=== PATIENT | female | born 1990 | race American Indian/Alaskan Native ===

== ENCOUNTER 2016-06-24 18:47 | Emergency (ER) | payer OTHER ==
[2016-06-24 20:52] LABS: Alanine Aminotransferase 12 units/L (7-56); Albumin 4.5 g/dL (3.9-5); Albumin/Globulin Ratio 1.5 %; Alkaline Phosphatase 55 units/L (35-129); Anion Gap 19 mmol/L; Bilirubin,Total 0.3 mg/dL (0.1-1.2); Blood Urea Nitrogen 8 mg/dL (7-17); Calcium 9.4 mg/dL (8.4-10.2); Carbon Dioxide 23 mmol/L (22-30); Chloride 97.1 mmol/L (98-107); Glucose 82 mg/dL (65-100); Lipase 28 units/L (13-60); Potassium 4.3 mmol/L (3.6-5.0); Sodium 135 mmol/L (137-145); Total Protein 7.6 g/dL (6.3-8.2)
[2016-06-24 21:03] LABS: Basophils % (Auto) 0.1 % (0.0-1.8); Eosinophils % (Auto) 0.5 % (0.0-4.3); Hemoglobin 13.3 gm/dl (10.1-14.3); Mean Corpuscular HGB Conc 32 % (30-34); Mean Corpuscular Hemoglobin 26 pg (28-32); Mean Corpuscular Volume 81 fl (79-97); Platelet Count 211 K/mm3 (140-440); Red Blood Count 5.07 M/mm3 (3.65-5.03); Red Cell Distribution Width 13.2 % (13.2-15.2); White Blood Count 6.6 K/mm3 (4.5-11.0)
[2016-06-25 01:12] LABS: Bacteria,Urine 1+ /HPF (Negative); Bilirubin,Urine NEG (Negative); Blood,Urine LG (Negative); Ketones,Urine 80 mg/dL (Negative); Leukocyte Esterase,Urine MOD (Negative); Mucus,Urine 2+ /HPF; Nitrite,Urine NEG (Negative); Protein,Urine <15 mg/dL mg/dL (Negative); Urobilinogen,Urine < 2.0 mg/dL (<2.0)
[2016-06-25] MEDS ORDERED: TYLENOL PO ONE (07:14)
--- NOTE | 2016-06-25 07:21 | Emergency Department Report ---
ED Abdominal Pain HPI - General Chief Complaint: Abdominal Pain Stated Complaint: POSS 6 WKS GESTATION/STOMACH PAIN/HURTS TO BREATH Time Seen by Provider: 06/25/16 07:02 Source: patient Mode of arrival: Ambulatory Limitations: No Limitations - History of Present Illness Initial Comments: 26-year-old female with no significant past medical history presents to the hospital complains of right-sided chest pain and abdominal pain. Patient lifted a table at work. The next morning she had right sided sharp chest pain radiating to the back and lower abdominal pain. Right-sided chest pain is intermittent, rated 7/10 in intensity, worse with laying in certain positions and movement. No shortness of breath, calf tenderness, or edema. Patient also had intermittent lower abdominal cramping pain with brown spotting. She denies dysuria or fever. Patient has not had any care including ultrasound. This is her first . - Related Data Previous Rx's Medication Instructions Recorded Last Taken Type Nitrofurantoin [place]/M-Cryst 100 mg PO Q12HR #14 capsule 06/25/16 Unknown Rx [Macrobid CAP] Vit W-Ca,Fe,FA(<1 mg) 1 each PO DAILY #30 tablet 06/25/16 Unknown Rx [ Vitamins] Allergies Allergy/AdvReac Type Severity Reaction Status Date / Time No Known Allergies Allergy Unverified 06/24/16 19:22 ED Review of Systems ROS: Stated complaint: POSS 6 WKS GESTATION/STOMACH PAIN/HURTS TO BREATH Other details as noted in HPI Comment: All other systems reviewed and negative Other: Constitutional: No fevers chills Eyes: No eye pain visual changes ENT: No ear pain or throat pain Neck: Denies pain Respiratory: Denies cough wheezing shortness of breath Cardiovascular: Denies palpitations, syncope GI: Denies nausea, vomiting, diarrhea : Denies dysuria Musculoskeletal: Denies back pain Skin: Denies rash, lesions, erythema Neurologic: Denies headache, numbness, weakness Psychiatric: Denies suicidal ideation, hallucinations ED Past Medical Hx - Past Medical History Previous Medical History?: No - Surgical History Past Surgical History?: No - Social History Smoking Status: Never Smoker Substance Use Type: None - Medications Home Medications: Home Medications Medication Instructions Recorded Confirmed Last Taken Type Nitrofurantoin [place]/M-Cryst 100 mg PO Q12HR #14 capsule 03/12/17 Unknown Rx [Macrobid CAP] Vit W-Ca,Fe,FA(<1 mg) 1 each PO DAILY #30 tablet 06/25/16 Unknown Rx [ Vitamins] ED Physical Exam - General Limitations: No Limitations - Other Other exam information: General: No limitations, patient is alert in no acute distress Head exam: Atraumatic, normocephalic Eyes exam: Normal appearance ENT: Moist mucous membrane, normal oropharynx Neck exam: Normal inspection, full range of motion Respiratory exam: Clear to auscultation bilateral, no wheezes, rales, crackles, right chest pain reproducible with movement Cardiovascular: Normal rate and rhythm, normal heart sounds : Mild amount of old blood in vaginal vault, no CMT or adnexal tenderness. Cervical os closed Abdomen: Soft, nondistended, mild lower abd pain, with normal bowel sounds, no rebound, or guarding Extremity: Full range of motion normal inspection no deformity, no calf tenderness or edema Back: Normal Inspection, full range of motion, no tenderness Neurologic: Alert, oriented x3, cranial nerves intact, no motor or sensory deficit Psychiatric: normal affect, normal mood Skin: Warm, dry, intact ED Course Vital Signs 06/24/16 19:16 Temperature 98.3 F Pulse Rate 75 Respiratory 18 Rate O2 Sat by Pulse 100 Oximetry - Reevaluation(s) Reevaluation #1: 06/25/16 07:21 tylenol ordered for pain ED Medical Decision Making - Lab Data Result diagrams: 06/24/16 20:15 06/24/16 20:15 Lab Results 06/24/16 06/24/16 06/24/16 Range/Units 00:00 20:15 20:15 WBC 6.6 (4.5-11.0) K/mm3 RBC 5.07 H (3.65-5.03) M/mm3 Hgb 13.3 (10.1-14.3) gm/dl Hct 41.0 (30.3-42.9) % MCV 81 (79-97) fl MCH 26 L (28-32) pg MCHC 32 (30-34) % RDW 13.2 (13.2-15.2) % Plt Count 211 (140-440) K/mm3 Lymph % (Auto) 20.4 (13.4-35.0) % [place] % (Auto) 7.6 H (0.0-7.3) % Eos % (Auto) 0.5 (0.0-4.3) % Baso % (Auto) 0.1 (0.0-1.8) % Lymph # 1.3 (1.2-5.4) K/mm3 [place] # 0.5 (0.0-0.8) K/mm3 Eos # 0.0 (0.0-0.4) K/mm3 Baso # 0.0 (0.0-0.1) K/mm3 Seg Neutrophils % 71.4 H (40.0-70.0) % Seg Neutrophils # 4.7 (1.8-7.7) K/mm3 Sodium 135 L (137-145) mmol/L Potassium 4.3 (3.6-5.0) mmol/L Chloride 97.1 L (98-107) mmol/L Carbon Dioxide 23 (22-30) mmol/L Anion Gap 19 mmol/L BUN 8 (7-17) mg/dL Creatinine 0.5 L (0.7-1.2) mg/dL Estimated GFR > 60 ml/min BUN/Creatinine Ratio 16.00 % Glucose 82 (65-100) mg/dL Calcium 9.4 (8.4-10.2) mg/dL Total Bilirubin 0.3 (0.1-1.2) mg/dL AST 18 (5-40) units/L ALT 12 (7-56) units/L Alkaline Phosphatase 55 (35-129) units/L Total Protein 7.6 (6.3-8.2) g/dL Albumin 4.5 (3.9-5) g/dL Albumin/Globulin Ratio 1.5 % Lipase 28 (13-60) units/L HCG, Quant (0-4) mIU/mL Urine Color Yellow (Yellow) Urine Turbidity Clear (Clear) Urine pH 5.0 (5.0-7.0) Ur Specific [place] 1.025 (1.003-1.030) Urine Protein <15 mg/dl (Negative) mg/dL Urine Glucose (UA) Neg (Negative) mg/dL Urine Ketones 80 (Negative) mg/dL Urine Blood Lg (Negative) Urine Nitrite Neg (Negative) Ur Reducing Substances Not Reportable Urine Bilirubin Neg (Negative) Urine Ictotest Not Reportable Urine Urobilinogen < 2.0 (<2.0) mg/dL Ur Leukocyte Esterase Mod (Negative) Urine WBC (Auto) 26.0 H (0.0-6.0) /HPF Urine RBC (Auto) 1.0 (0.0-6.0) /HPF U Epithel Cells (Auto) 5.0 (0-13.0) /HPF Urine Bacteria (Auto) 1+ (Negative) /HPF Urine Mucus 2+ /HPF Urine HCG, Qual Positive A (Negative) Blood Type Ord Rhogam Gestat Weeks WEEKS 06/24/16 06/25/16 Range/Units 20:15 07:50 WBC (4.5-11.0) K/mm3 RBC (3.65-5.03) M/mm3 Hgb (10.1-14.3) gm/dl Hct (30.3-42.9) % MCV (79-97) fl MCH (28-32) pg MCHC (30-34) % RDW (13.2-15.2) % Plt Count (140-440) K/mm3 Lymph % (Auto) (13.4-35.0) % [place] % (Auto) (0.0-7.3) % Eos % (Auto) (0.0-4.3) % Baso % (Auto) (0.0-1.8) % Lymph # (1.2-5.4) K/mm3 [place] # (0.0-0.8) K/mm3 Eos # (0.0-0.4) K/mm3 Baso # (0.0-0.1) K/mm3 Seg Neutrophils % (40.0-70.0) % Seg Neutrophils # (1.8-7.7) K/mm3 Sodium (137-145) mmol/L Potassium (3.6-5.0) mmol/L Chloride (98-107) mmol/L Carbon Dioxide (22-30) mmol/L Anion Gap mmol/L BUN (7-17) mg/dL Creatinine (0.7-1.2) mg/dL Estimated GFR ml/min BUN/Creatinine Ratio % Glucose (65-100) mg/dL Calcium (8.4-10.2) mg/dL Total Bilirubin (0.1-1.2) mg/dL AST (5-40) units/L ALT (7-56) units/L Alkaline Phosphatase (35-129) units/L Total Protein (6.3-8.2) g/dL Albumin (3.9-5) g/dL Albumin/Globulin Ratio % Lipase (13-60) units/L HCG, Quant 26510 H (0-4) mIU/mL Urine Color (Yellow) Urine Turbidity (Clear) Urine pH (5.0-7.0) Ur Specific [place] (1.003-1.030) Urine Protein (Negative) mg/dL Urine Glucose (UA) (Negative) mg/dL Urine Ketones (Negative) mg/dL Urine Blood (Negative) Urine Nitrite (Negative) Ur Reducing Substances Urine Bilirubin (Negative) Urine Ictotest Urine Urobilinogen (<2.0) mg/dL Ur Leukocyte Esterase (Negative) Urine WBC (Auto) (0.0-6.0) /HPF Urine RBC (Auto) (0.0-6.0) /HPF U Epithel Cells (Auto) (0-13.0) /HPF Urine Bacteria (Auto) (Negative) /HPF Urine Mucus /HPF Urine HCG, Qual (Negative) Blood Type AB POSITIVE Ord Rhogam Gestat Weeks Rh pos WEEKS Wet Prep negative - Radiology Data Radiology results: report reviewed transvag/Ultrasound pelvic: Single living intrauterine gestation at 6 weeks 0 days. Indeterminate moderately peripherally vascular mass left adnexal. Differential includes concomitant ectopic or copious luteum cyst of - Medical Decision Making Patient has a single living IUP. Complex mass in the left adnexal likely corpus lutein cyst patient will still be provided topical precautions until repeat ultrasound, verify. Patient does not require RhoGAM given blood type. vitamins, Tylenol, and Macrobid will be provided. Patient is mild urine wbc inc therefore will cover for UTI. Patient's right sided chest pain started after lifting and is reproducible with movement. Appears to be musculoskeletal in origin. Patient has normal vital signs and no significant shortness of breath of DVT symptoms. - Differential Diagnosis threatened , miscarriage, ectopic, musculoskeletal pain Critical Care Time: No Critical care attestation.: If time is entered above; I have spent that time in minutes in the direct care of this critically ill patient, excluding procedure time. ED Disposition Clinical Impression: 6 weeks gestation of , Ovarian mass, left, Threatened , UTI ( urinary tract infection), Strain of chest wall Disposition: DISCHARGED TO HOME OR SELFCARE Is pt being admited?: No Does the pt Need Aspirin: No Condition: Stable Instructions: Ectopic (ED), Threatened Miscarriage (ED), Ovarian Cyst (ED), Urinary Tract Infection in Women (ED), Thoracic Pain (ED) Additional Instructions: Take the medication as prescribed. Take Tylenol as needed for pain. Follow-up with [facility] doctor provided with a doctor provided. Ultrasound shows a 6 week and a mass on the left ovary. This is likely a corpus luteum cyst which is a normal cyst that develops during to support the baby. However, the radiologist states cannot rule out any ectopic ( in your ovary) as well. Although this is less likely, you still need to be aware of the possibility. You will need repeat ultrasound and reevaluation. Return if worsening pain. Pelvic rest (no sex) recommended because they may stimulate further bleeding. Await clearance form [employer] doctor before reinitiating sexual activity. Your gonorrhea and chlamydia tests are pending and take approximately 3-4 days result. You may obtain results in medical records with a photo ID. You may also obtain results through the follow -up doctor office via medical record request. Prescriptions: Nitrofurantoin [place]/M-Cryst [Macrobid CAP] 100 mg PO Q12HR #14 capsule Vit W-Ca,Fe,FA(<1 mg) [ Vitamins] 1 each PO DAILY #30 tablet Referrals: [facility] [Provider Group] - 3-5 Days Time of Disposition: 09:14
--- NOTE | 2016-06-25 09:01 | Ultrasound Report ---
FINAL REPORT PROCEDURE: US OB \T\lt; = 14 WEEKS FETUS TECHNIQUE: Real-time transabdominal sonography of the uterus, placenta, amniotic fluid, adnexa, and fetus was performed with image documentation. Measurements were obtained to determine age/size. M-mode Doppler was used to document heartbeat. CPT 63829 HISTORY: vag spotting and pain COMPARISON: No prior studies are available for comparison. FINDINGS: CRL: 4 mm, which corresponds to a gestational age of: 6 weeks, 0 days. Yolk Sac: Normal. Embryonic Cardiac Activity: 102 beats per minute Gestational Sac: Normal. Amniotic fluid: Normal. Cervix: Normal. Right Ovary: 4.2 x 1.8 centimeters with normal flow Left Ovary: 3.7 x 2.0 centimeters with normal flow. Heterogeneous complex mass in the left adnexa measuring 1.6 x 1.2 centimeters with peripheral vascular flow of indeterminate etiology. This could reflect concomitant ectopic or other etiologies including but not limited to involuted corpus luteum cyst of . Concomitant ectopic is the diagnosis of exclusion and followup and further workup is advised Estimated delivery date: 02/18/2017 Free fluid: None IMPRESSION: Single live intrauterine gestation at approximately 6 weeks 0 days. EDC by US 02/18/2017. Indeterminate moderately peripherally vascular mass left adnexa as described. Short-term followup and further evaluation/monitoring is advised
--- NOTE | 2016-06-25 09:04 | Ultrasound Report ---
FINAL REPORT PROCEDURE: US OB TRANSVAGINAL TECHNIQUE: Real-time transvaginal sonography of the uterus, placenta, amniotic fluid, adnexa, and fetus was performed with image documentation. Measurements were obtained to determine age/size. M-mode Doppler was used to document heartbeat. CPT 12274 HISTORY: vag spotting and pain COMPARISON: No prior studies are available for comparison. FINDINGS: CRL: 4mm, which corresponds to a gestational age of: 6weeks, 0 days. Consistent with 1 percent growth per [place] Yolk Sac: Normal. Embryonic Cardiac Activity: 102 beats per minute Gestational Sac: Normal. Right Ovary: 4.2 x 1.8 centimeters with normal flow Left Ovary: 3.7 x 2.0 centimeters with normal flow. Indeterminate heterogeneous mass in the left adnexa measuring 1.6 x 1.2 centimeters with moderate peripheral vascular flow and partial incomplete anterior ring of fire appearance image 21. Concomitant ectopic is the diagnosis of exclusion and followup and further workup is advised. Estimated delivery date: 02/18/2017 Comment: No free fluid is seen IMPRESSION: 1. Single living intrauterine gestation at approximately 6 weeks 0 days 2. EDC by US 02/18/2017. 3. Indeterminate complex mass left adnexa as described. Followup is advised
[2016-06-25] MEDS ORDERED: MACROBID PO ONE (09:05)
[2016-06-25 09:45] VITALS: BP 124/82
== END 2016-06-25 09:46 | disposition home or self-care (01) ==
LOC: ED 18:47
DX: O20.0 Threatened abortion (principal); O23.41 Unspecified infection of urinary tract in pregnancy, first trimester; S29.011A Strain of muscle and tendon of front wall of thorax, initial encounter; N83.9 Noninflammatory disorder of ovary, fallopian tube and broad ligament, unspecified; Z3A.01 Less than 8 weeks gestation of pregnancy; X58.XXXA Exposure to other specified factors, initial encounter; Y93.89 Activity, other specified; Y99.9 Unspecified external cause status; Y92.89 Other specified places as the place of occurrence of the external cause
CPT/HCPCS: 36415; 76801; 76817; 80053; 81001; 81025; 83690; 84702; 85025; 86900; 86901; 87210; 87591

== ENCOUNTER 2016-09-13 16:01 | Emergency (ER) | payer MEDICAID, OTHER ==
--- NOTE | 2016-09-13 18:43 | Ultrasound Report ---
FINAL REPORT PROCEDURE: US OB \T\gt; = 14 WEEKS FETUS TECHNIQUE: Real-time limited sonographic examination was performed for evaluation of size, position, heartbeat, fluid volume for each fetus with image documentation (1 or more fetuses). CPT 10714 HISTORY: report amniotic fluid leakage with 18 weeks pregna COMPARISON: Prior Ob ultrasound 06/25/2016 FINDINGS: There is a single living intrauterine gestation currently visualized in the breech presentation with a heart rate of 176 beats per minute. The placenta is located posterior and is grade 0. No placenta abruption is visualized. Cervix length 3 centimeters. No amniotic fluid is visualized at the present time. There appears to be severe oligohydramnios. Detailed exam of the anatomy was not performed today. No gross abnormality is seen. MEASUREMENTS BPD: 3.9 centimeter equals 17 week 5 days. HC: Not measured. AC: 12.3 centimeter equals 17 weeks 6 days. FL: 2.4 centimeter equals 17 week 2 days. Mean Gestational Age (composite criteria): 17 weeks 4 days. Ratio biometry: Normal . Estimated Weight: Not calculated. Interval growth: Appropriate . Estimated Due Date (earliest scan): 02/18/2017. IMPRESSION: A single living intrauterine gestation currently visualized in the breech presentation. Severe oligohydramnios is present. No amniotic fluid is visualized. Cervix length as described. Average sonographic age by today's exam 17 weeks 4 days. The expected age by the initial exam 17 weeks 3 days. There has been appropriate interval growth. Estimated date confinement remains 02/18/2017 0.5 weeks. Follow-up exam recommended. OBGYN consultation recommended.
--- NOTE | 2016-09-13 20:06 | Emergency Department Report ---
HPI - General Chief Complaint: Vaginal Bleeding Time Seen by Provider: 09/13/16 20:03 - HPI HPI: This is a 26-year-old Afro-Lux[place]bour[place] female who presents to the emergency department at and about 18 weeks with the complaint of "my water broke yesterday." The patient says that she went to [facility] and was told that she had a low amniotic fluid level and that her options were termination. The patient did not respond well to these being her only options and she was told to follow-up with her [facility]S [facility]ER. She does not have a particular WOODS RIDER. She says that she has seen a hide and skin colerer one time and was due for a repeat visit today, however she cannot remember the WO[facility]S [facility]ER service or the name of the hide and skin colerer. She continued to have some leaking of fluid so she presents to [facility] for further evaluation. She denies any significant abdominal pain, any vaginal bleeding, dysuria or discharge. ED Past Medical Hx - Past Medical History Previous Medical History?: Yes - Surgical History Past Surgical History?: No - Social History Smoking Status: Never Smoker Substance Use Type: Non Opiate Pain, Prescribed - Medications Home Medications: Home Medications Medication Instructions Recorded Confirmed Last Taken Type Nitrofurantoin [place]/M-Cryst 100 mg PO Q12HR #14 capsule 06/25/16 Unknown Rx [Macrobid CAP] Vit W-Ca,Fe,FA(<1 mg) 1 each PO DAILY #30 tablet 06/25/16 Unknown Rx [ Vitamins] ED Review of Systems ROS: Stated complaint: 18 WEEKS WATER BROKE Other details as noted in HPI Comment: All other systems reviewed and negative Constitutional: denies: chills, fever Eyes: denies: eye pain, eye discharge, vision change ENT: denies: ear pain, throat pain Respiratory: denies: cough, shortness of breath, wheezing Gastrointestinal: denies: nausea, vomiting Genitourinary: denies: urgency, dysuria, discharge Musculoskeletal: denies: back pain, joint swelling, arthralgia Skin: denies: rash, lesions Neurological: denies: headache, weakness, paresthesias Physical Exam - Physical Exam Vital Signs: Vital Signs 09/13/16 16:44 Temperature 97.5 F L Pulse Rate 89 Respiratory 20 Rate Blood Pressure 111/55 O2 Sat by Pulse 100 Oximetry Physical Exam: GENERAL: The patient is well-developed well-nourished. HEENT: Normocephalic. Atraumatic. Extraocular motions are intact. Patient has moist mucous membranes. Pupils equal reactive to light bilaterally. NECK: Supple. Trachea is midline. CHEST/LUNGS: Clear to auscultation. There is no respiratory distress noted. HEART/CARDIOVASCULAR: Regular. There is no tachycardia. There is no gallop rub or murmur. ABDOMEN: Abdomen is soft, nontender. Patient has normal bowel sounds. There is no abdominal distention. Gravid uterus is palpable a few centimeters below the umbilicus. SKIN: There is no rash. There is no edema. There is no diaphoresis. NEURO: The patient is awake, alert, and oriented. The patient is cooperative. The patient has no focal neurologic deficits. The patient has normal speech. MUSCULOSKELETAL: There is no tenderness or deformity. There is no limitation range of motion. There is no evidence of acute injury. ED Course Vital Signs 09/13/16 16:44 Temperature 97.5 F L Pulse Rate 89 Respiratory 20 Rate Blood Pressure 111/55 O2 Sat by Pulse 100 Oximetry - Consultations Consultation #1: I spoke with the WOODS RIDER service, [facility]. I first spoke with Dr. Renae but I had to hang up abruptly to take care of a nonresponsive patient coming into the emergency department. I was called back by the hide and skin colerer, Nicole, about 5 minutes later. I spoke with Mckenna regarding the patient's oligohydramnios. She then spoke with Dr. Renae and I was told that the patient can be discharged home safely to follow up with her WO[facility]ER service. They feel that there is always the chance that there is a miscarriage but the patient should be safe for discharge home. 09/13/16 20:35 ED Medical Decision Making - Medical Decision Making This is a 26-year-old female presents to the emergency department at about 17 weeks and a history of leaking amniotic fluid who was seen at [facility] yesterday and discharged home to follow-up with OB. She came in today with continuation of her symptoms and it almost seems like she came for a second opinion as she was not happy with the reaction at [facility] that she says involved different methods of termination of her . The patient does not have any abdominal pain or any vaginal bleeding. She had an ultrasound that was ordered through triage that came back showing oligohydramnios but a live currently viable intrauterine at about 17 weeks. I spoke with the WO[facility]S R[employer]ER service brick mason and they are aware of the patient's ultrasound result showing the oligohydramnios and the intrauterine . They do not recommend admission and instead recommended that the patient follow up with her WOODS RIDER service tomorrow. I spoke with the patient regarding the WOODS RIDER recommendations and she will be discharged home to follow-up with her WOODS RIDER service tomorrow. However she has been given instructions for bed rest, pelvic rest, avoiding any exertion, and she is to call the WOODS RIDER service for similar the morning. She is to return to the ER immediately with any development of abdominal discomfort, vaginal bleeding or any acute distress. She understands and agrees to plan. - Differential Diagnosis oligohydramnios, , miscarriage Critical Care Time: No Critical care attestation.: If time is entered above; I have spent that time in minutes in the direct care of this critically ill patient, excluding procedure time. ED Disposition Clinical Impression: Oligohydramnios Qualifiers: Fetus number: single or unspecified fetus Trimester: second trimester Qualified Code(s): O41.02X0 - Oligohydramnios, second trimester, not applicable or unspecified Qualifiers: Weeks of gestation: 17 weeks Qualified Code(s): Z3A.17 - 17 weeks gestation of Disposition: DISCHARGED TO HOME OR SELFCARE Is pt being admited?: No Condition: Stable Additional Instructions: You were seen today for a complication of her in which there is no amniotic fluid and the name of this condition is oligohydramnios. Please follow -up with your WOODS RIDER service tomorrow without fail. Return to the emergency department immediately with any sharp abdominal or pelvic pains, vaginal bleeding, signs of labor/contractions, development of fever or any acute process. Referrals: [facility] [Primary Care Provider] - 24 Hours [facility] [Provider Group] - 24 Hours Forms: Work/School Release Form(ED) Time of Disposition: 21:45
[2016-09-13 21:55] VITALS: BP 101/58
== END 2016-09-13 21:56 | disposition home or self-care (01) ==
LOC: ED 16:01
DX: O41.02X0 Oligohydramnios, second trimester, not applicable or unspecified (principal); Z3A.17 17 weeks gestation of pregnancy
CPT/HCPCS: 76805; 99283

== ENCOUNTER 2016-09-17 07:14 | Inpatient (IN) | payer MEDICAID ==
[2016-09-17 08:25] LABS: Bilirubin,Urine NEG (Negative); Blood,Urine LG (Negative); Ketones,Urine NEG (Negative); Leukocyte Esterase,Urine LG (Negative); Mucus,Urine 1+ /HPF; Nitrite,Urine NEG (Negative); RBC,Urine > 182.0 /HPF (0.0-6.0); Urobilinogen,Urine < 2.0 mg/dL (<2.0)
[2016-09-17 08:31] LABS: Eosinophils % (Auto) 0.2 % (0.0-4.3); Hematocrit 36.6 % (30.3-42.9); Hemoglobin 12.5 gm/dl (10.1-14.3); Mean Corpuscular HGB Conc 34 % (30-34); Mean Corpuscular Hemoglobin 28 pg (28-32); Mean Corpuscular Volume 82 fl (79-97); Platelet Count 253 K/mm3 (140-440); Red Blood Count 4.48 M/mm3 (3.65-5.03); Red Cell Distribution Width 13.3 % (13.2-15.2); White Blood Count 13.9 K/mm3 (4.5-11.0)
--- NOTE | 2016-09-17 08:48 | Emergency Department Report ---
ED Female HPI - General Chief complaint: Abdominal Pain Stated complaint: 19 WKS W/CRAMPING Time Seen by Provider: 09/17/16 08:35 Source: patient Mode of arrival: Wheelchair Limitations: No Limitations - History of Present Illness Initial comments: 26-year-old female approximately 19 weeks presents to the hospital complaining of contractions and vaginal bleeding. Patient was recently seen here and at [facility] for complaint of "my water broke". Patient was seen here on September [address] Roberts and ultrasound revealed oligohyramnios that live viable intrauterine at about 17 weeks. Outpatient follow-up was recommended. Patient went to [facility] and was evaluated on September 15 and was told that she did not have any amniotic fluid. She was told the baby still had a heartbeat. Patient was seen by high worker/GYN and started on vitamins and fish oil it was so there was a small possibility that she may still have a viable . So patient opted to see how her will progress as opposed to scheduling a D&C. Patient has been having vaginal spotting since September 15 which and crease to bleeding with clots last night. Patient has used 4 pads since bleeding increased. She complains of suprapubic contractions approximately 10 minutes apart. - Related Data Previous Rx's Medication Instructions Recorded Last Taken Type Nitrofurantoin [place]/M-Cryst 100 mg PO Q12HR #14 capsule 06/25/16 Unknown Rx [Macrobid CAP] Vit W-Ca,Fe,FA(<1 mg) 1 each PO DAILY #30 tablet 06/25/16 Unknown Rx [ Vitamins] Allergies Allergy/AdvReac Type Severity Reaction Status Date / Time No Known Allergies Allergy Unverified 06/24/16 19:22 ED Review of Systems ROS: Stated complaint: 19 WKS W/CRAMPING Other details as noted in HPI Comment: All other systems reviewed and negative Other: Constitutional: No fevers chills Eyes: No eye pain visual changes ENT: No ear pain or throat pain Neck: Denies pain Respiratory: Denies cough wheezing shortness of breath Cardiovascular: Denies chest pain, palpitations, syncope GI: As per HPI : Denies dysuria Musculoskeletal: Denies back pain, joint swelling Skin: Denies rash, lesions, erythema Neurologic: Denies headache, numbness, weakness Psychiatric: Denies suicidal ideation, hallucinations ED Past Medical Hx - Past Medical History Previous Medical History?: No - Surgical History Past Surgical History?: No - Social History Smoking Status: Never Smoker Substance Use Type: None - Medications Home Medications: Home Medications Medication Instructions Recorded Confirmed Last Taken Type Nitrofurantoin [place]/M-Cryst 100 mg PO Q12HR #14 capsule 06/25/16 Unknown Rx [Macrobid CAP] Vit W-Ca,Fe,FA(<1 mg) 1 each PO DAILY #30 tablet 06/25/16 Unknown Rx [ Vitamins] ED Physical Exam - General Limitations: No Limitations - Other Other exam information: General: No limitations, patient is alert in no acute distress Head exam: Atraumatic, normocephalic Eyes exam: Normal appearance ENT: Moist mucous membrane, normal oropharynx Neck exam: Normal inspection, full range of motion Respiratory exam: Clear to auscultation bilateral, no wheezes, rales, crackles Cardiovascular: Normal rate and rhythm, normal heart sounds Abdomen: Soft, nondistended, and nontender, with normal bowel sounds, no rebound, or guarding : head in vaginal canal, + moderate vag bleeding Extremity: Full range of motion normal inspection no deformity Back: Normal Inspection, full range of motion, no tenderness Neurologic: Alert, oriented x3, cranial nerves intact, no motor or sensory deficit Psychiatric: normal affect, normal mood Skin: Warm, dry, intact ED Course Vital Signs 09/17/16 07:47 Temperature 98.6 F Pulse Rate 87 Respiratory 16 Rate Blood Pressure 102/62 O2 Sat by Pulse 99 Oximetry - Reevaluation(s) Reevaluation #1: 09/17/16 09:54 tylenol given for pain - Consultations Consultation #1: 09/17/16 09:35 Case d/w Dr Cervantes. Pt will be transfered to labor and delivery ED Medical Decision Making - Lab Data Result diagrams: 09/17/16 07:56 Lab Results 09/17/16 09/17/16 09/17/16 Range/Units 07:54 07:54 07:56 WBC 13.9 H (4.5-11.0) K/mm3 RBC 4.48 (3.65-5.03) M/mm3 Hgb 12.5 (10.1-14.3) gm/dl Hct 36.6 (30.3-42.9) % MCV 82 (79-97) fl MCH 28 (28-32) pg MCHC 34 (30-34) % RDW 13.3 (13.2-15.2) % Plt Count 253 (140-440) K/mm3 Lymph % (Auto) 10.9 L (13.4-35.0) % Wells % (Auto) 4.7 (0.0-7.3) % Eos % (Auto) 0.2 (0.0-4.3) % Baso % (Auto) 0.0 (0.0-1.8) % Lymph # 1.5 (1.2-5.4) K/mm3 Wells # 0.7 (0.0-0.8) K/mm3 Eos # 0.0 (0.0-0.4) K/mm3 Baso # 0.0 (0.0-0.1) K/mm3 Seg Neutrophils % 84.2 H (40.0-70.0) % Seg Neutrophils # 11.7 H (1.8-7.7) K/mm3 HCG, Quant 20959 H (0-4) mIU/mL Urine Color (Yellow) Urine Turbidity (Clear) Urine pH (5.0-7.0) Ur Specific [place] (1.003-1.030) Urine Protein (Negative) mg/dL Urine Glucose (UA) (Negative) mg/dL Urine Ketones (Negative) mg/dL Urine Blood (Negative) Urine Nitrite (Negative) Urine Bilirubin (Negative) Urine Urobilinogen (<2.0) mg/dL Ur Leukocyte Esterase (Negative) Urine WBC (Auto) (0.0-6.0) /HPF Urine RBC (Auto) (0.0-6.0) /HPF U Epithel Cells (Auto) (0-13.0) /HPF Urine Mucus /HPF Blood Type AB POSITIVE Antibody Screen TNR JOE Antibody Screen Negative 09/17/16 Range/Units 08:05 WBC (4.5-11.0) K/mm3 RBC (3.65-5.03) M/mm3 Hgb (10.1-14.3) gm/dl Hct (30.3-42.9) % MCV (79-97) fl MCH (28-32) pg MCHC (30-34) % RDW (13.2-15.2) % Plt Count (140-440) K/mm3 Lymph % (Auto) (13.4-35.0) % Wells % (Auto) (0.0-7.3) % Eos % (Auto) (0.0-4.3) % Baso % (Auto) (0.0-1.8) % Lymph # (1.2-5.4) K/mm3 Wells # (0.0-0.8) K/mm3 Eos # (0.0-0.4) K/mm3 Baso # (0.0-0.1) K/mm3 Seg Neutrophils % (40.0-70.0) % Seg Neutrophils # (1.8-7.7) K/mm3 HCG, Quant (0-4) mIU/mL Urine Color Red (Yellow) Urine Turbidity Cloudy (Clear) Urine pH 6.0 (5.0-7.0) Ur Specific [place] 1.018 (1.003-1.030) Urine Protein 100 mg/dl (Negative) mg/dL Urine Glucose (UA) Neg (Negative) mg/dL Urine Ketones Neg (Negative) mg/dL Urine Blood Lg (Negative) Urine Nitrite Neg (Negative) Urine Bilirubin Neg (Negative) Urine Urobilinogen < 2.0 (<2.0) mg/dL Ur Leukocyte Esterase Lg (Negative) Urine WBC (Auto) 111.0 H (0.0-6.0) /HPF Urine RBC (Auto) > 182.0 (0.0-6.0) /HPF U Epithel Cells (Auto) 4.0 (0-13.0) /HPF Urine Mucus 1+ /HPF Blood Type Antibody Screen JOE Antibody Screen - Radiology Data Radiology results: report reviewed ultrasound: Single live gestation with fetus in vagina and placenta in the uterus. Clinical age 18 weeks and 3 days and 17 weeks 1 day ultrasound gestational age.. No amniotic fluid - Medical Decision Making Patient has a status of the vaginal canal with positive heartbeat. She will be transferred to labor and delivery for further management. Case discussed with PILLOWCASE MAKER - Differential Diagnosis miscarriage, demise,oligohydramnios Critical Care Time: No Critical care attestation.: If time is entered above; I have spent that time in minutes in the direct care of this critically ill patient, excluding procedure time. ED Disposition Clinical Impression: Incomplete miscarriage, Oligohydramnios Disposition: OP ADMITTED IP TO THIS HOSP Is pt being admited?: Yes Condition: Stable Time of Disposition: 09:58 (Dr Cervantes/[employer]FR[employer] HISTORY PROFESSOR)
[2016-09-17] MEDS ORDERED: TYLENOL PO ONE (09:35)
--- NOTE | 2016-09-17 09:41 | Ultrasound Report ---
OB sonogram: History: Contractions, 19 week , a fluid leak. Findings: There is single gestation noted. The baby appears to be in the vagina. No fluid seen in the in the amniotic sac. Placenta is difficult to visualize and appears to be posterior and still attached to the uterus. Grade 0 placenta. heart rate 178 per minute. Biparietal diameter 3.3 cm corresponding to 16 weeks and 3 days of gestation. Head circumference 13.6 cm corresponding to 17 weeks of gestation. Abdominal circumference 12.9 cm corresponding to 18 weeks and 3 days of gestation. Femur length 2.2 cm corresponding to 16 weeks and 5 days of gestation. Head circumference to abdominal circumference ratio 1.06. Cephalic index 80.3. Estimated weight 199 g. LMP 05/11/16. Clinical age 18 weeks and 3 days. Estimated date of conception 02/15/17. Ultrasound gestational age 17 weeks and one day. Estimated date of conception 02/24/17. Impression: Single live gestation with fetus in vagina and the placenta in the uterus. Dr. García was informed of the findings at 9:35 AM on 09/17/16.
[2016-09-17] MEDS ORDERED: XYLOCAINE 2% INFILTRATI ONE (09:55)
[2016-09-17] MEDS ORDERED: ePHEDrine SULFATE IV PRN (09:55)
[2016-09-17] MEDS ORDERED: BRETHINE SUB-Q PRN (09:55)
[2016-09-17] MEDS ORDERED: STADOL IV PRN (09:55)
[2016-09-17] MEDS ORDERED: LACTATED RINGERS 1,000 ML IV SCH (10:00)
[2016-09-17] MEDS ORDERED: PITOCin/NS 20 UNIT/1000ML DRIP 20 UNITS/1,000 ML BAG IV SCH (10:00)
--- NOTE | 2016-09-17 10:01 | History and Physical Report ---
History of Present Illness Date of examination: 09/17/16 Date of admission: 09/17/2016 Chief complaint: pelvic pain and bleeding History of present illness: 26y/o @ 18+3 weeks braxton presents to ED with complaint of pelvic pain and bleeding. The patient reports having leakage of fluid on September 12. She was evaluated and given expectant management secondary to the fetus having +cardiac activity. She presents today with worsening of her symptoms. Ob ultrasound demonstrated the fetus had delivered into the vagina. The patient denies any precipitating event for her symptoms. 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 Social history: single - Obstetrical History Expected Date of Delivery: 02/15/17 Actual Gestation: 18 Week(s) 3 Day(s) : 1 Para: 0 Hx # Term Pregnancies: 0 Number of Pregnancies: 0 Spontaneous Abortions: 0 Induced : 0 Number of Living Children: 0 Medications and Allergies Allergies Allergy/AdvReac Type Severity Reaction Status Date / Time No Known Allergies Allergy Unverified 06/24/16 19:22 Home Medications Medication Instructions Recorded Confirmed Last Taken Type Nitrofurantoin [place]/M-Cryst 100 mg PO Q12HR #14 capsule 06/25/16 Unknown Rx [Macrobid CAP] Vit W-Ca,Fe,FA(<1 mg) 1 each PO DAILY #30 tablet 06/25/16 Unknown Rx [ Vitamins] Active Meds: Active Medications Butorphanol Tartrate (Stadol) 2 mg IV Q1HR PRN PRN Reason: Labor Pain Ephedrine Sulfate (Ephedrine Sulfate) 10 mg IV Q2M PRN PRN Reason: Hypotension Stop: 09/17/16 10:00 Lactated Ringer's (Lactated Ringers) 1,000 mls @ 125 mls/hr IV DIRECT WILL Oxytocin/Sodium Chloride (Pitocin/Ns 20 Unit/1000ml Drip) 20 units in 1,000 mls @ 125 mls/hr IV DIRECT WILL Lidocaine (Xylocaine 2%) 20 ml INFILTRATI ONCE ONE Stop: 09/17/16 09:56 Terbutaline Sulfate (Brethine) 0.25 mg SUB-Q ONCE PRN PRN Reason: Hyperstimulation/Hypertonicity Stop: 09/17/16 09:56 Review of Systems All systems: negative Genitourinary: vaginal bleeding, pelvic pain - Vital Signs Vital signs: Vital Signs Temp Pulse Resp BP Pulse Ox 98.6 F 87 16 102/62 99 09/17/16 07:47 09/17/16 07:47 09/17/16 07:47 09/17/16 07:47 09/17/16 07:47 Temp Pulse Resp BP Pulse Ox 98.6 F 87 16 102/62 99 09/17/16 07:47 09/17/16 07:47 09/17/16 07:47 09/17/16 07:47 09/17/16 07:47 - Physical Exam Breasts: Positive: deferred Cardiovascular: Regular rate Lungs: Positive: Clear to auscultation Abdomen: Positive: normal appearance Vagina: Positive: other (fetus palpated in vagina) Results Result Diagrams: 09/17/16 07:56 Abnormal lab results 09/17/16 09/17/16 09/17/16 Range/Units 07:54 07:56 08:05 WBC 13.9 H (4.5-11.0) K/mm3 Lymph % (Auto) 10.9 L (13.4-35.0) % Seg Neutrophils % 84.2 H (40.0-70.0) % Seg Neutrophils # 11.7 H (1.8-7.7) K/mm3 HCG, Quant 69726 H (0-4) mIU/mL Urine WBC (Auto) 111.0 H (0.0-6.0) /HPF All other labs normal. Assessment and Plan - Patient Problems (1) labor in second trimester Current Visit: Yes Status: Acute Qualifiers: labor delivery status: P Fetus number: F Plan to address problem: patient was transferred to L&D for delivery patient likely has incompetent cervix (2) Oligohydramnios Current Visit: Yes Status: Acute Qualifiers: Fetus number: F Trimester: T
--- NOTE | 2016-09-17 12:50 | Procedure Note ---
OB Delivery Note - Delivery Date of Delivery: 09/17/16 Surgeon: LENNY VILLARREAL Estimated blood loss: <100cc - Vaginal Delivery presentation: transverse lie Intrapartum events: labor-<37 weeks Delivery monitor: none Route of delivery: Delivery comments: Vaginal exam performed with findings of fetus in the vagina. Patient encouraged to push with delivery of a non-viable male . Apgars 1/1. The cord was clamped and cut and the placed on the warmer. The placenta delivered spontaneously. No lacerations. No heroic measures were performed for the . Weight 155gm. - Infant A at 1 minute: 1 at 5 minutes: 1 (weight 155gm) Gender: Male
[2016-09-17] MEDS ORDERED: TUCKS PAD TP PRN (14:41)
[2016-09-17] MEDS ORDERED: PHENERGAN PR PRN (14:41)
[2016-09-17] MEDS ORDERED: NORCO 5/325 PO PRN (14:41)
[2016-09-17] MEDS ORDERED: BENADRYL PO PRN (14:41)
[2016-09-17] MEDS ORDERED: PHENERGAN PO PRN (14:41)
[2016-09-17] MEDS ORDERED: TYLENOL PO PRN (14:41)
[2016-09-17] MEDS ORDERED: ZOFRAN IV PRN (14:41)
[2016-09-17] MEDS ORDERED: MILK OF MAGNESIA PO PRN (14:41)
[2016-09-17] MEDS ORDERED: LANSINOH TP PRN (14:41)
[2016-09-17] MEDS ORDERED: DULCOLAX PR PRN (14:41)
[2016-09-17] MEDS ORDERED: SODIUM CHLORIDE FLUSH SYRINGE 10 ML IV SCH (15:00)
[2016-09-17 18:42] LABS: Urine Drugs of Abuse Note Disclamer
[2016-09-17] MEDS: MOTRIN PO SCH ×2 (18:46→23:24)
[2016-09-17 19:10] LABS: HIV-1 Antigen p24 Non React (Non React); HIVR-1/2 Ab Non React (Non React)
[2016-09-18 02:31] LABS: Hematocrit 35.6 % (30.3-42.9); Hemoglobin 11.3 gm/dl (10.1-14.3)
[2016-09-18] MEDS: MOTRIN PO SCH (05:36)
[2016-09-18 08:10] VITALS: BP 100/59
--- NOTE | 2016-09-18 08:55 | Progress Note ---
Assessment and Plan - Patient Problems (1) labor in second trimester Current Visit: Yes Status: Acute Qualifiers: labor delivery status: P Fetus number: F Plan to address problem: discharge home (2) Oligohydramnios Current Visit: Yes Status: Acute Qualifiers: Fetus number: F Trimester: T Subjective - Subjective Date of service: 09/18/16 Interval history: Patient is without complaints. Reports doing well. Pain well controlled Patient reports: appetite normal, voiding normally, pain well controlled [place]: Objective - Vital Signs Latest vital signs: Vital Signs Temp Pulse Pulse Resp BP BP 09/18/16 08:09 97.9 F 87 16 100/59 09/18/16 04:50 98.3 F 80 18 92/55 09/18/16 00:25 98.2 F 88 18 95/58 09/17/16 20:45 98.5 F 84 18 105/62 09/17/16 15:50 98.5 F 70 18 110/70 09/17/16 15:20 86 90/52 09/17/16 15:05 82 105/63 09/17/16 14:50 84 103/59 09/17/16 14:35 90 93/51 09/17/16 14:20 85 101/55 09/17/16 14:06 92 H 110/57 09/17/16 14:00 98.3 F 16 09/17/16 13:49 96 H 113/56 09/17/16 12:39 98 H 118/61 09/17/16 10:33 88 105/56 Intake and Output 09/17/16 09/18/16 09/18/16 22:59 06:59 14:59 Intake Total 360 240 Output Total 400 Balance -40 240 Intake: Oral 360 240 Output: Urine 400 Void 400 Other: Total, Intake Amount 120 120 Total, Output Amount 200 Voiding Method Toilet # Voids Void 1 - Exam Abdomen: Present: normal appearance, soft
--- NOTE | 2016-09-18 08:58 | Discharge Summary ---
Providers - Providers Date of Admission: 09/17/16 09:56 Date of discharge: 09/18/16 Attending physician: LENNY VILLARREAL Primary care physician: LENNY VILLARREAL Hospitalization Reason for admission: labor Delivery: Other procedures: none Discharge diagnosis: other ( demise; incompetent cervix), delivery baby: male Hospital course: Patient presented to ED with vaginal bleeding and pain. 18 week with complete dilation and fetus in the vagina. Patient had a with delivery of the placenta. secondary to severe prematurity. uncomplicated. Condition at discharge: Good Disposition: DISCHARGED TO HOME OR SELFCARE - Discharge Diagnoses (1) labor in second trimester Status: Acute Qualifiers: labor delivery status: P Fetus number: F (2) Oligohydramnios Status: Acute Qualifiers: Fetus number: F Trimester: T Plan - Discharge Medications Prescriptions: HYDROcodone/APAP 5-325 [[place] 5/325] 1 each PO Q6HR PRN #30 tablet PRN Reason: Pain Ibuprofen [Motrin] 800 mg PO Q8HR PRN #60 tablet PRN Reason: Pain - Provider Discharge Summary Activity: no sex for 6 weeks, no heavy lifting 4 weeks, no strenuous exercise Diet: routine Instructions: routine Additional instructions: [] Smoking cessation referral if applicable(refer to patient education folder for contact #) [] Refer to [facility] Booklet Call your doctor immediately for: * Fever > 100.5 * Heavy vaginal bleeding ( >1 pad per hour) * Severe persistent headache * Shortness of breath * Reddened, hot, painful area to leg or breast * Drainage or odor from incision. * Keep incision clean and dry at all times and follow doctor's instructions regarding bathing/showering followup in [address] Thomas @ [facility] [address] [place] [address] [phone] - Follow up plan
== END 2016-09-18 10:20 | disposition home or self-care (01) | DRG 779 ==
LOC: ED 07:14 → LD 09:56 → OB 16:22
PROVIDERS: ADMIT Obstetrics & Gynecology; ATTEND Obstetrics & Gynecology
PROC: 10E0XZZ Delivery of Products of Conception, External Approach (ICD-10-PCS; principal; 2016-09-17)
DX: O03.4 Incomplete spontaneous abortion without complication (principal); O60.12X0 Preterm labor second trimester with preterm delivery second trimester, not applicable or unspecified; O41.02X0 Oligohydramnios, second trimester, not applicable or unspecified; O34.32 Maternal care for cervical incompetence, second trimester; Z3A.18 18 weeks gestation of pregnancy; Z37.1 Single stillbirth
CPT/HCPCS: 36415; 76805; 80307; 81001; 84702; 85014; 85018; 85025; 85660; 86592; 86706; 86762; 86803; 86850; 86900; 86901; 87806; 88305; 99285; J0595; J2590; J7120